=== PATIENT | female | born 1975 | race African-American/Black ===

== ENCOUNTER 2016-09-29 11:09 | Emergency (ER) | payer MEDICAID | END 2016-09-29 16:20 | disposition home or self-care (01) | LOC: D.ER 11:09 | DX: S16.1XXA Strain of muscle, fascia and tendon at neck level, initial encounter (principal); X58.XXXA Exposure to other specified factors, initial encounter; Y93.89 Activity, other specified; Y92.89 Other specified places as the place of occurrence of the external cause; F32.9 Major depressive disorder, single episode, unspecified; I10 Essential (primary) hypertension ==

== ENCOUNTER → 2017-05-25 17:20 | Outpatient (CLI) | payer MEDICAID | END | disposition home or self-care (01) | LOC: D.LAB 17:20 | DX: T85.9XXA Unspecified complication of internal prosthetic device, implant and graft, initial encounter (principal) ==

== ENCOUNTER 2017-06-03 05:29 | Day surgery (SDC) | payer OTHER ==
[2017-06-01 12:21] LABS: BASOPHILS 0.7 % (0-2); EOSINOPHILS 4.6 % (0-7); HEMATOCRIT 28.2 % (36.0-48.0); LYMPHOCYTES 36.5 % (15-50); MCHC 28.4 g/dL (31.0-37.0); MCV 68.9 fL (80.0-100.0); MEAN PLATELET VOLUME 9.3 fL (7.4-10.4); MONOCYTES 9.6 % (2-11); NEUTROPHILS 48.6 % (40-80); PLATELET COUNT 140 10x3/uL (130-400); RBC 4.09 10x6/uL (4.00-5.40); RDW 18.6 % (11.5-14.5); WBC 5.6 10x3/uL (4.8-10.8)
[2017-06-01 12:29] LABS: MCH 19.6 pg (26.0-34.0)
[2017-06-01 12:36] LABS: CALC OSMOLALITY 279 mosm/kg (275-300); CALCIUM 9.1 mg/dL (8.5-10.1); CARBON DIOXIDE 21.7 mmol/L (21.0-32.0); CHLORIDE - SERUM 111 mmol/L (98-107); CREATININE - SERUM 0.5 mg/dL (0.6-1.3); GLUCOSE 104 mg/dL (74-106); POTASSIUM - SERUM 4.8 mmol/L (3.5-5.1); SODIUM 141 mmol/L (136-145); UREA NITROGEN 11 mg/dL (7-18); eGFR NON AFRICAN AMERICAN > 90 mL/min (90-120)
[2017-06-01 12:40] LABS: HCG SERUM NEGATIVE (NEGATIVE)
[~2017-06-03] VITALS: Ht 160 cm; Wt 104.3 kg
--- NOTE | ~2017-06-03 | OP ---
PATIENT NAME: JESSEE ISSA MEDICAL RECORD: [id number] :79 LOCATION:[facility] ADMISSION DATE: SURGEON: PRAVEEN LIAO MD DATE OF OPERATION: 06/03/2017 PREOPERATIVE DIAGNOSES: 1. Menorrhagia. 2. Fibroids. 3. History of IUD placement. POSTOPERATIVE DIAGNOSES: 1. Uterine fibroids. 2. Proliferative endometrium. 3. No evidence of IUD noted. PROCEDURES: Hysteroscopy, D&C and endometrial biopsy. SURGEON: Praveen Liao MD. ESTIMATED BLOOD LOSS: Minimal. INTRAVENOUS FLUIDS: Per anesthesia record. HYSTEROSCOPIC FLUID LOSS: 300 in with less than 100 loss of 0.9 normal saline. COMPLICATIONS: None apparent. SPECIMENS: Endometrial curettings, endometrial biopsies and endometrial biopsy Pipelle. DESCRIPTION OF PROCEDURE: The patient was taken to the operating room where general anesthesia was achieved without difficulty. The patient prepped and draped in normal sterile fashion in the dorsal lithotomy position in the [facility]. The bladder was drained with a straight catheterization with approximately 200 cc of clear yellow urine. At this point, a Graves speculum was placed into the vagina and the cervix was identified and grasped on its anterior lip with a single-toothed tenaculum. Uterus was sounded to approximately 10 cm and found to be very severely anteverted. Dilation was performed, direct visualization of the turn in the internal cervical os measurement was noted to prevent perforation. Due to the severe anteverted nature and the long cervix, the normal curettes could not reach an adequate height to fully sample the uterine fundus, so an endometrial biopsy Pipelle was used to perform 4 successive biopsies to the level of the fundus. Minimal bleeding was noted from the cervical os. Afterwards, the tenaculum was removed. The patient tolerated the procedure well, transferred to postanesthesia recovery stable without incident. TRANSINT:[id number] Voice Confirmation ID: [id number] DOCUMENT ID: [id number] OPERATIVE REPORT [id number] JESSEE ISSA PRAVEEN LIAO MD CC: [id number] DICTATION DATE: 06/03/17 1107 [employer] SERVICE TECHNICIAN: 06/03/17 1655 [facility] [address] [place] [address]
[2017-06-03 07:27] VITALS: BP 150/87; Ht 160 cm; Wt 104.3 kg
[2017-06-03 07:36] LABS: HCG URINE NEGATIVE (NEGATIVE)
--- NOTE | 2017-06-03 10:37 | NUR ---
20G SITED IN LEFT HAND ON 2ND ATTEMPT BY FRANCES JOHNSON CRNA GOOD BLOOD RETURN OBTAINED FLUSHED AND PATENT. 1ST UNIT OF BLOOD STARTED.
--- NOTE | 2017-06-03 12:18 | NUR ---
PATIENT CAME TO PACU WITH BLOOD INFUSING. 2U OF PRBC WERE ORDERED. THE SECOND UNIT WILL INFUSE IN 0/P. FIRST UNIT COMPLETED AT 1150.
--- NOTE | 2017-06-03 13:00 | NUR ---
PRBC TRANSFUSING SEE TRANSFUSION RECORD FOR VS.
--- NOTE | 2017-06-03 13:45 | NUR ---
CONTINUE TO C/O SORE, SCRATCHY THROAT. SPOKE WITH DR QUINTEROS. NEW ORDERS NOTED. WILL CONTINUE TO MONITOR.
--- NOTE | 2017-06-03 15:40 | NUR ---
CONTINUES TO C/O SORE THROAT, C/O RIGHT EAR AND JAW/NECK PAIN. SPOKE WITH DR QUINTEROS. DR QUINTEROS TO BEDSIDE.
== END 2017-06-03 18:54 | disposition home or self-care (01) ==
LOC: D.OPS 05:29 → D.PAN 08:30 → D.OPS 09:00
PROVIDERS: Obstetrics & Gynecology
DX: N92.0 Excessive and frequent menstruation with regular cycle (principal); D25.9 Leiomyoma of uterus, unspecified; C86.6 Primary cutaneous CD30-positive T-cell proliferations; F17.200 Nicotine dependence, unspecified, uncomplicated; K21.9 Gastro-esophageal reflux disease without esophagitis; E66.01 Morbid (severe) obesity due to excess calories; Z68.41 Body mass index [BMI] 40.0-44.9, adult; Z01.812 Encounter for preprocedural laboratory examination

== ENCOUNTER 2018-04-28 11:02 | Outpatient (CLI) | payer MEDICAID ==
[~2018-04-28] VITALS: Ht 160 cm; Wt 103.6 kg
[2018-04-28 11:27] VITALS: Ht 160 cm; Wt 103.6 kg
[2018-04-28 13:03] LABS: ALBUMIN 3.6 g/dL (3.4-5.0); ALKALINE PHOSPHATASE 70 U/L (46-116); ALT (SGPT) 51 U/L (10-68); BILIRUBIN - TOTAL 0.32 mg/dL (0.2-1.3); CALC OSMOLALITY 276 mosm/kg (275-300); CALCIUM 8.8 mg/dL (8.5-10.1); CARBON DIOXIDE 26.4 mmol/L (21.0-32.0); CHLORIDE - SERUM 105 mmol/L (98-107); CREATININE - SERUM 0.6 mg/dL (0.6-1.3); GLUCOSE 95 mg/dL (74-106); POTASSIUM - SERUM 4.1 mmol/L (3.5-5.1); PROTEIN - SERUM 7.5 g/dL (6.4-8.2); SODIUM 140 mmol/L (136-145); UREA NITROGEN 8 mg/dL (7-18); eGFR NON AFRICAN AMERICAN > 90 mL/min (90-120)
[2018-04-28 13:14] LABS: BASOPHILS 0.7 % (0-2); HEMATOCRIT 23.9 % (36.0-48.0); IMMATURE GRANULOCYTES 0.2 % (0-5); LYMPHOCYTES 29.6 % (15-50); MCHC 26.8 g/dL (31.0-37.0); MCV 69.9 fL (80.0-100.0); MEAN PLATELET VOLUME 9.4 fL (7.4-10.4); MONOCYTES 11.7 % (2-11); NEUTROPHILS 54.8 % (40-80); RBC 3.42 10x6/uL (4.00-5.40); RDW 25.7 % (11.5-14.5); WBC 4.6 10x3/uL (4.8-10.8)
[2018-04-28 13:17] LABS: HEMOGLOBIN 6.4 g/dL (12-16); MCH 18.7 pg (26.0-34.0); PLATELET COUNT 401 10x3/uL (130-400)
[2018-04-28 18:13] VITALS: BP 137/80
== END 2018-04-28 23:00 | disposition home or self-care (01) ==
LOC: D.ER 11:02 → D.LDO 11:02 → D.ER 17:11 → D.EDHOLD 17:11 → D.LD 17:14 → D.ER 18:16 → D.LD 18:31 → D.LDO 23:00 → D.LD 23:00
PROVIDERS: Family Medicine
DX: N92.0 Excessive and frequent menstruation with regular cycle (principal); D64.9 Anemia, unspecified; F17.200 Nicotine dependence, unspecified, uncomplicated; Z01.812 Encounter for preprocedural laboratory examination

== ENCOUNTER 2018-05-02 16:22 | Inpatient (IN) | payer MEDICAID ==
[2018-05-02] VITALS (10 sets, daily range): BP systolic 134–207; BP diastolic 77–99; BMI 40.6
[~2018-05-02] VITALS: Ht 160 cm; Wt 104.1 kg
[2018-05-02 17:24] LABS: BASOPHILS 0.2 % (0-2); HEMOGLOBIN 8.1 g/dL (12-16); IMMATURE GRANULOCYTES 0.2 % (0-5); LYMPHOCYTES 29.2 % (15-50); MCH 21.2 pg (26.0-34.0); MCHC 28.9 g/dL (31.0-37.0); MCV 73.3 fL (80.0-100.0); MEAN PLATELET VOLUME 9.5 fL (7.4-10.4); MONOCYTES 8.4 % (2-11); RBC 3.82 10x6/uL (4.00-5.40); RDW 25.2 % (11.5-14.5); WBC 4.4 10x3/uL (4.8-10.8)
[2018-05-02 17:31] LABS: PLATELET COUNT 162 10x3/uL (130-400)
[2018-05-02 17:33] LABS: APTT 24.6 SECONDS (22.8-39.4); INR 0.97 (0.85-1.17); PROTIME 12.5 SECONDS (11.6-15.0)
[2018-05-02 17:34] LABS: D-DIMER-QUANTITATIVE 0.7 ug/mLFEU (0.20-0.54)
[2018-05-02] MEDS ORDERED: ACETAMINOPHEN500 M1 PO (17:58)
[2018-05-02] MEDS ORDERED: OMEPRAZOLE20 M1 PO (18:03)
[2018-05-03] VITALS (15 sets, daily range): BP systolic 121–155; BP diastolic 58–95; Ht 160 cm; Wt 104.1 kg
[2018-05-03 09:03] LABS: BASOPHILS 0.5 % (0-2); EOSINOPHILS 2.9 % (0-7); HEMATOCRIT 33.8 % (36.0-48.0); HEMOGLOBIN 10.3 g/dL (12-16); IMMATURE GRANULOCYTES 0.3 % (0-5); LYMPHOCYTES 32.1 % (15-50); MCHC 30.5 g/dL (31.0-37.0); MCV 75.4 fL (80.0-100.0); MEAN PLATELET VOLUME 9.4 fL (7.4-10.4); MONOCYTES 8.9 % (2-11); NEUTROPHILS 55.3 % (40-80); PLATELET COUNT 109 10x3/uL (130-400); RBC 4.48 10x6/uL (4.00-5.40); RDW 23.3 % (11.5-14.5); WBC 3.8 10x3/uL (4.8-10.8)
[2018-05-03 09:29] LABS: APTT 25.6 SECONDS (22.8-39.4); INR 0.99 (0.85-1.17); PROTIME 12.7 SECONDS (11.6-15.0)
[2018-05-03 09:31] LABS: D-DIMER-QUANTITATIVE 0.66 ug/mLFEU (0.20-0.54)
[2018-05-04 04:45] VITALS: BP 150/87
[2018-05-04 06:11] LABS: BASOPHILS 0.4 % (0-2); EOSINOPHILS 2.9 % (0-7); HEMATOCRIT 32.9 % (36.0-48.0); HEMOGLOBIN 10.1 g/dL (12-16); IMMATURE GRANULOCYTES 0.2 % (0-5); LYMPHOCYTES 33.5 % (15-50); MCH 23.2 pg (26.0-34.0); MCHC 30.7 g/dL (31.0-37.0); MCV 75.6 fL (80.0-100.0); MONOCYTES 10.5 % (2-11); NEUTROPHILS 52.5 % (40-80); PLATELET COUNT 101 10x3/uL (130-400); RBC 4.35 10x6/uL (4.00-5.40); RDW 23.4 % (11.5-14.5)
[2018-05-04 06:31] LABS: WBC 4.9 10x3/uL (4.8-10.8)
[2018-05-04 06:45] VITALS: BP 153/88
[2018-05-04 06:45] LABS: ALBUMIN 3.1 g/dL (3.4-5.0); ALKALINE PHOSPHATASE 54 U/L (46-116); ALT (SGPT) 58 U/L (10-68); CALC OSMOLALITY 278 mosm/kg (275-300); CALCIUM 8.7 mg/dL (8.5-10.1); CARBON DIOXIDE 24.5 mmol/L (21.0-32.0); CHLORIDE - SERUM 108 mmol/L (98-107); CREATININE - SERUM 0.5 mg/dL (0.6-1.3); GLUCOSE 87 mg/dL (74-106); POTASSIUM - SERUM 3.6 mmol/L (3.5-5.1); PROTEIN - SERUM 6.7 g/dL (6.4-8.2); SODIUM 142 mmol/L (136-145); UREA NITROGEN 5 mg/dL (7-18); eGFR NON AFRICAN AMERICAN > 90 mL/min (90-120)
[2018-05-04 12:00] VITALS: BP 125/80
== END 2018-05-04 19:30 | disposition home or self-care (01) | DRG 812 ==
LOC: D.LDO 16:22 → D.LD 19:48 → D.WS 19:48
PROVIDERS: Family Medicine; Obstetrics & Gynecology
DX: D64.9 Anemia, unspecified (principal); D25.9 Leiomyoma of uterus, unspecified; N92.0 Excessive and frequent menstruation with regular cycle; I10 Essential (primary) hypertension; F17.200 Nicotine dependence, unspecified, uncomplicated

== ENCOUNTER 2018-05-19 05:20 | Inpatient (IN) | payer MEDICAID ==
[2018-05-18 16:14] LABS: BASOPHILS 0.6 % (0-2); EOSINOPHILS 4.2 % (0-7); HEMATOCRIT 33.5 % (36.0-48.0); HEMOGLOBIN 10.4 g/dL (12-16); IMMATURE GRANULOCYTES 0.1 % (0-5); LYMPHOCYTES 18.3 % (15-50); MCH 24.2 pg (26.0-34.0); MCV 77.9 fL (80.0-100.0); MEAN PLATELET VOLUME 9.6 fL (7.4-10.4); MONOCYTES 6.9 % (2-11); NEUTROPHILS 69.9 % (40-80); PLATELET COUNT 349 10x3/uL (130-400); RDW 24.1 % (11.5-14.5); WBC 8.3 10x3/uL (4.8-10.8)
[2018-05-18 16:34] LABS: CALC OSMOLALITY 280 mosm/kg (275-300); CALCIUM 8.8 mg/dL (8.5-10.1); CARBON DIOXIDE 24.8 mmol/L (21.0-32.0); CHLORIDE - SERUM 107 mmol/L (98-107); CREATININE - SERUM 0.7 mg/dL (0.6-1.3); GLUCOSE 81 mg/dL (74-106); POTASSIUM - SERUM 3.8 mmol/L (3.5-5.1); SODIUM 141 mmol/L (136-145); UREA NITROGEN 14 mg/dL (7-18); eGFR NON AFRICAN AMERICAN > 90 mL/min (90-120)
[~2018-05-19] VITALS: Ht 160 cm; Wt 104.1 kg
[2018-05-19] VITALS (10 sets, daily range): BP systolic 114–179; BP diastolic 66–111; Ht 160 cm; Wt 104.1 kg
--- NOTE | ~2018-05-19 | OP ---
PATIENT NAME: JESSEE ISSA MEDICAL RECORD: [id number] :79 LOCATION:[facility] ADMISSION DATE:05/19/18 SURGEON: WYATT LIAO MD DATE OF OPERATION: 05/19/2018 PREOPERATIVE DIAGNOSES: 1. Severe anemia. 2. Uterine leiomyoma. POSTOPERATIVE DIAGNOSES: 1. Severe anemia. 2. Uterine leiomyoma. 3. Extensive adhesive disease. PROCEDURE: Supracervical hysterectomy and lysis of adhesions. SURGEON: Dr. Wyatt Liao ESTIMATED BLOOD LOSS: 500 cc. IV FLUIDS: Per anesthesia record. FINDINGS: 1. Enlarged myomatous uterus and extensive adhesive disease involving the cervix and bladder. 2. Normal ovaries bilaterally. SPECIMENS: Included the uterus. COMPLICATIONS: None apparent. DESCRIPTION OF THE PROCEDURE: The patient was taken to the operating room where general anesthesia was achieved without difficulty. Three units of packed red blood cells had been placed on hold. The patient was then prepped and draped in normal sterile fashion in the dorsal supine position. SCDs were on and functioning appropriately. A Murrell catheter in place and was draining freely. At this point, a repeat vertical skin incision was made and extended downward to the underlying subcutaneous fat to the level of the fascia. The fascia was then excised vertically at the superior aspect of the incision and the peritoneum was identified upon entry of the fascia. Car clamps were then used to elevate the fascia away from the underlying structures. Careful dissection of the fascia downward using the Marie scissors was performed to the level of approximately 2 cm above the pubic symphysis. The peritoneum was then entered sharply at the superior aspect of the incision using the Metzenbaum scissors. Omentum was noted to be densely adherent to the fascia. The omentum was carefully clamped, cut, and then free tied with 2-0 Vicryl until intra-abdominal/pelvic visualization could be performed. The uterus was then identified and dense adhesive disease was noted between the bladder, bilateral adnexa, and the cervix. Attention was then turned to the round ligaments, which were then grasped with Car clamps times 2. The round ligament was then cut using the Metzenbaum scissors bilaterally and the distal portion was then suture ligated with 0 Vicryl. A rudimentary bladder flap was created bilaterally on the sides using OPERATIVE REPORT [id number] JESSEE ISSA the Metzenbaum scissors, dissection was found to be extremely difficult on the lower uterine segment due to history of previous section. The bladder flap was developed to only level of a few millimeters until the bladder was found to be densely adherent to the cervix. Attention was then turned to the posterior leaf of the broad ligament, which a defect was made. Curved Dany clamps were then placed across the utero-ovarian ligaments and proximal fallopian tubes. These were then cut and ligated with 0-Vicryl free ties and then suture ligated with good hemostasis noted. The uterine vessels were then carefully skeletonized using the Metzenbaum scissors at the internal os of the cervix, which was where the bladder was found to be densely adherent. The uterine arteries were ligated using curved Dany clamps bilaterally. These were then cut and suture ligated. Attention was then turned to the bladder flap and careful dissection of the bladder downward from the lower uterine segment was performed; however, it was felt that continued dissection of the densely adherent bladder in an attempt to remove the cervix would result in a very high chance of a cystotomy or possible damage to the ureter, it was decided at this point to proceed with supracervical hysterectomy and the uterus was amputated at the level of the internal cervical os. The cervical os was then fulgurated using the Bovie cautery. Cervical stump was then oversewn using 0 Vicryl in an interrupted [id number] fashion. Good hemostasis was noted from the surgical sites at this time. The pelvis was then thoroughly irrigated. Counts correct times 2 for needles, sponges, and instruments. The vertical fascial incision was then repaired with 0 loop PDS in a running unlocked fashion times 1. The subcutaneous fat was then approximated using 0 plain gut and the skin was repaired with ayaka. The patient tolerated procedure well, transferred to the postanesthesia recovery stable without incident. TRANSINT:[id number] Voice Confirmation ID: [id number] DOCUMENT ID: [id number] WYATT LIAO MD CC: [id number] DICTATION DATE: 06/11/18530 TRANSMISSION SPECIALIST: 06/11/18704 DIS IN 05/21/18 [facility] [address] [place] [id number]
--- NOTE | ~2018-05-19 | DS ---
PATIENT:JESSEE ISSA :79 MEDICAL RECORD: [id number] DISCHARGE SUMMARY ADMISSION DATE: 05/19/18 DISCHARGE DATE: 05/21/18 HISTORY: The patient was admitted on 05/19/2018. A 42-year-old with a longstanding history of fibroids and menorrhagia. The patient had a recent history of hemoglobin of 5 necessitating admission and transfusion of 5 units of packed red cells. The patient was admitted on 05/19/2018 for hysterectomy. Risks and benefits had been explained. PAST MEDICAL HISTORY: Significant for, 1. Fibroids. 2. Menorrhagia. 3. Anemia. 4. Tobacco smoker. 5. History of chronic hypertension. PAST SURGICAL HISTORY: Significant for multiple C-sections and carpal tunnel release. ALLERGIES: The patient reported no known allergies. MEDICATIONS: Acetaminophen, omeprazole. FAMILY HISTORY: The patient reported no significant family history. SOCIAL HISTORY: Positive for being a current every day smoker. PHYSICAL EXAMINATION: VITAL SIGNS: On initial assessment, vital signs were found to be stable, mild elevation of blood pressure 149/87. The patient was normotensive. LUNGS: Clear to auscultation. CARDIOVASCULAR: Regular rate and rhythm. PELVIC: Uterus was enlarged and felt adherent to the anterior abdominal wall on exam. EXTREMITIES: Lower extremities are free of Homans sign. ASSESSMENT AND PLAN: At that time, fibroid uterus with anemia and menorrhagia, history of chronic hypertension, and history of section times 4. The patient is a tobacco smoker. Plan at that time was for hysterectomy. Risks and benefits were explained to the patient. The patient voiced understanding and consent. HOSPITAL COURSE: The patient is status post 5 units of packed red blood cells transfused, 3 units of packed red blood cells were placed on hold. A supracervical hysterectomy was performed. Operative report is as dictated. The patient did well overnight on postop day #0, on Dilaudid [employer], IV Toradol, tolerating clear liquid diet. Murrell catheter was in overnight and draining freely with adequate urine output. Homans sign was negative. The patient had SCDs on overnight. On the morning of postop day #1, the patient continued to do well. Vital signs DISCHARGE SUMMARY REPORT [id number] JESSEE ISSA are stable. The patient was afebrile, blood pressure medicines were started overnight. The incision was clean, dry and intact. Hemoglobin was stable and appropriate for amount of blood loss. Murrell was discontinued and the patient was advanced to general diet and p.o. pain meds. Creatinine was found to be within normal limits. The patient continued to improve and did well on the night of postoperative day #1, tolerating a general diet and p.o. pain meds. The patient was ambulating and voiding freely. On the morning of postop day #2, the patient continued to improve. Vital signs remained stable. The patient was afebrile. Incision clean, dry and intact. The pain well controlled on p.o. pain meds. The patient voided freely and ambulating well. The patient was discharged home on postop day #2 with instructions to follow up for staple removal. TRANSINT:[id number] Voice Confirmation ID: [id number] DOCUMENT ID: [id number] PRAVEEN MURILLO MD CC: [id number] DICTATION DATE: 06/11/18 0536 WOOD ROOM HAND: 06/11/18 0730 DIS IN 05/21/18 [place] [id number] [place] [id number]
[~2018-05-19 05:20] MED LIST: ACETAMINOPHEN500 M1 PO; OMEPRAZOLE20 M1 PO
[2018-05-19] MEDS ORDERED: ZESTRIL20 MG PO (06:18)
[2018-05-19] MEDS ORDERED: NIFEDIPINE ER30 MG PO (06:19)
[2018-05-19 06:24] LABS: HCG URINE NEGATIVE (NEGATIVE)
[2018-05-19 16:00] LABS: BASOPHILS 0.1 % (0-2); EOSINOPHILS 0 % (0-7); HEMATOCRIT 34.8 % (36.0-48.0); IMMATURE GRANULOCYTES 0.2 % (0-5); MCH 24.7 pg (26.0-34.0); MCHC 31.6 g/dL (31.0-37.0); MEAN PLATELET VOLUME 9.8 fL (7.4-10.4); NEUTROPHILS 92.7 % (40-80); PLATELET COUNT 349 10x3/uL (130-400); RBC 4.46 10x6/uL (4.00-5.40); RDW 22.7 % (11.5-14.5)
[2018-05-19 16:02] LABS: WBC 15.7 10x3/uL (4.8-10.8)
[2018-05-19 16:07] LABS: CALCIUM 8.1 mg/dL (8.5-10.1); CHLORIDE - SERUM 105 mmol/L (98-107); GLUCOSE 104 mg/dL (74-106); SODIUM 137 mmol/L (136-145)
[2018-05-19 16:08] LABS: CALC OSMOLALITY 271 mosm/kg (275-300); CREATININE - SERUM 0.5 mg/dL (0.6-1.3); UREA NITROGEN 7 mg/dL (7-18); eGFR NON AFRICAN AMERICAN > 90 mL/min (90-120)
[2018-05-20 03:52] VITALS: BP 130/73
[2018-05-20 06:13] LABS: CALCIUM 8.1 mg/dL (8.5-10.1); CARBON DIOXIDE 23.9 mmol/L (21.0-32.0); CHLORIDE - SERUM 105 mmol/L (98-107); CREATININE - SERUM 0.6 mg/dL (0.6-1.3); GLUCOSE 88 mg/dL (74-106); SODIUM 138 mmol/L (136-145); eGFR NON AFRICAN AMERICAN > 90 mL/min (90-120)
[2018-05-20 06:18] LABS: CALC OSMOLALITY 271 mosm/kg (275-300); POTASSIUM - SERUM 3.3 mmol/L (3.5-5.1); UREA NITROGEN 3 mg/dL (7-18)
[2018-05-20 06:32] LABS: BASOPHILS 0.2 % (0-2); EOSINOPHILS 0.5 % (0-7); HEMATOCRIT 31.3 % (36.0-48.0); HEMOGLOBIN 9.6 g/dL (12-16); IMMATURE GRANULOCYTES 0.2 % (0-5); LYMPHOCYTES 13.4 % (15-50); MCHC 30.7 g/dL (31.0-37.0); MCV 78.3 fL (80.0-100.0); MEAN PLATELET VOLUME 10.4 fL (7.4-10.4); MONOCYTES 7.9 % (2-11); NEUTROPHILS 77.8 % (40-80); PLATELET COUNT 369 10x3/uL (130-400); RDW 22.6 % (11.5-14.5)
[2018-05-20 06:38] LABS: WBC 11.1 10x3/uL (4.8-10.8)
[2018-05-20 08:44] VITALS: BP 141/62
[2018-05-20 19:30] VITALS: BP 150/73
[2018-05-20 23:07] VITALS: BP 147/73
[2018-05-21 03:44] VITALS: BP 147/67
[2018-05-21 08:27] VITALS: BP 129/63
[2018-05-21] MEDS ORDERED: HYDROCODONE-APA1 TAB PO (11:01)
[2018-05-21] MEDS ORDERED: IBUPROFEN600 MG PO (11:02)
== END 2018-05-21 13:15 | disposition home or self-care (01) | DRG 743 ==
LOC: D.WS 05:20 → D.SDCHOLD 05:20 → D.WS 10:48 → D.LD 05-20 18:26
PROVIDERS: Obstetrics & Gynecology
PROC: 0UT94ZL Resection of Uterus, Supracervical, Percutaneous Endoscopic Approach (ICD-10-PCS; principal; 2018-05-19 07:30)
PROC: 0TNB4ZZ Release Bladder, Percutaneous Endoscopic Approach (ICD-10-PCS; 2018-05-19 07:30)
DX: D25.9 Leiomyoma of uterus, unspecified (principal); D64.9 Anemia, unspecified; N92.0 Excessive and frequent menstruation with regular cycle; I10 Essential (primary) hypertension; Z72.0 Tobacco use

== ENCOUNTER 2018-08-10 15:53 | Emergency (ER) | payer MEDICAID ==
[~2018-08-10] VITALS: Ht 160 cm; Wt 103.2 kg
[~2018-08-10 15:53] MED LIST changes: +HYDROCODONE-APA1 TAB PO; +IBUPROFEN600 MG PO; +NIFEDIPINE ER30 MG PO; +ZESTRIL20 MG PO
[2018-08-10 16:04] VITALS: Ht 160 cm; Wt 103.2 kg
[2018-08-10] MEDS ORDERED: PROCARDIA10 MG PO ×2 (16:05→16:06)
[2018-08-10] MEDS ORDERED: PRINIVIL20 MG PO (16:05)
[2018-08-10] MEDS ORDERED: FOLATE0.4 MG PO (16:06)
== END 2018-08-10 18:30 | disposition left against medical advice (07) ==
LOC: D.ER 15:53
DX: I10 Essential (primary) hypertension (principal)

== ENCOUNTER 2018-08-25 14:51 | Emergency (ER) | payer MEDICAID ==
[~2018-08-25] VITALS: Ht 160 cm; Wt 101.8 kg
[~2018-08-25 14:51] MED LIST changes: +FOLATE0.4 MG PO; +PRINIVIL20 MG PO; +PROCARDIA10 MG PO
[2018-08-25 15:08] VITALS: Ht 160 cm; Wt 101.8 kg
[2018-08-25 16:59] VITALS: BP 161/89
== END 2018-08-25 16:58 | disposition home or self-care (01) ==
LOC: D.ER 14:51
DX: I10 Essential (primary) hypertension (principal); F17.200 Nicotine dependence, unspecified, uncomplicated

== ENCOUNTER 2018-10-03 18:18 | Emergency (ER) | payer MEDICAID ==
[~2018-10-03] VITALS: Ht 160 cm; Wt 99.5 kg
[2018-10-03 18:32] VITALS: Ht 160 cm; Wt 99.5 kg
[2018-10-03 19:45] VITALS: BP 131/66
== END 2018-10-03 20:07 | disposition left against medical advice (07) ==
LOC: D.ER 18:18
DX: I95.9 Hypotension, unspecified (principal)

== ENCOUNTER → 2018-11-24 12:39 | Outpatient (CLI) | payer MEDICAID ==
[2018-10-03 18:32] VITALS: BMI 38.8
== END | disposition home or self-care (01) ==
LOC: D.RAD 12:39 → D.LABREF 12:39
PROVIDERS: ATTEND Emergency Medicine
DX: M54.42 Lumbago with sciatica, left side (principal)

== ENCOUNTER → 2019-06-13 17:04 | Outpatient (CLI) | payer MEDICAID ==
[2018-10-03 18:32] VITALS: BMI 38.8
== END | disposition home or self-care (01) ==
LOC: D.RAD 17:04
PROVIDERS: ATTEND Emergency Medicine
DX: M54.2 Cervicalgia (principal)

== ENCOUNTER 2019-09-24 09:03 | Emergency (ER) | payer MEDICAID ==
[~2019-09-24] VITALS: Ht 160 cm; Wt 102.3 kg
[2019-09-24 09:06] VITALS: Ht 160 cm; Wt 102.3 kg
[2019-09-24 10:03] LABS: BASOPHILS 0.2 % (0-2); EOSINOPHILS 4.4 % (0-7); HEMATOCRIT 38.5 % (36.0-48.0); HEMOGLOBIN 12.8 g/dL (12-16); IMMATURE GRANULOCYTES 0.2 % (0-5); LYMPHOCYTES 31.4 % (15-50); MCH 28.4 pg (26.0-34.0); MCHC 33.2 g/dL (31.0-37.0); MCV 85.4 fL (80.0-100.0); MEAN PLATELET VOLUME 10.5 fL (7.4-10.4); MONOCYTES 8.9 % (2-11); NEUTROPHILS 54.9 % (40-80); PLATELET COUNT 165 10x3/uL (130-400); RBC 4.51 10x6/uL (4.00-5.40); RDW 15.7 % (11.5-14.5); WBC 4.8 10x3/uL (4.8-10.8)
[2019-09-24 10:05] LABS: APTT 27.6 SECONDS (22.8-39.4); CALC OSMOLALITY 278 mosm/kg (275-300); CALCIUM 8.8 mg/dL (8.5-10.1); CHLORIDE - SERUM 107 mmol/L (98-107); CREATININE - SERUM 0.6 mg/dL (0.6-1.3); GLUCOSE 108 mg/dL (74-106); INR 1.06 (0.85-1.17); POTASSIUM - SERUM 4.3 mmol/L (3.5-5.1); PROTIME 13.3 SECONDS (11.6-15.0); SODIUM 140 mmol/L (136-145); UREA NITROGEN 9 mg/dL (7-18); eGFR NON AFRICAN AMERICAN > 90 mL/min (90-120)
[2019-09-24 10:29] LABS: ALBUMIN 3.5 g/dL (3.4-5.0); ALKALINE PHOSPHATASE 64 U/L (46-116); ALT (SGPT) 127 U/L (10-68); BILIRUBIN - TOTAL 0.44 mg/dL (0.2-1.3); CKMB 0.8 U/L (0.0-3.6); CREATINE KINASE 133 UL (21-215); MAGNESIUM - SERUM 1.8 mg/dL (1.8-2.4); PROTEIN - SERUM 7.1 g/dL (6.4-8.2); TROPONIN-I < 0.017 ng/mL (0.000-0.060)
[2019-09-24] MEDS ORDERED: AUGMENTIN 875-11 TAB PO (11:46)
[2019-09-24] MEDS ORDERED: LISINOPRIL20 MG PO (11:46)
[2019-09-24] MEDS ORDERED: FLUTICASONE PRO16 GM NASAL (11:46)
[2019-09-24] MEDS ORDERED: PROCARDIA XL30 MG PO (11:53)
[2019-09-24 11:59] VITALS: BP 168/100
== END 2019-09-24 12:00 | disposition home or self-care (01) ==
LOC: D.ER 09:03
PROVIDERS: Family Medicine
DX: J01.90 Acute sinusitis, unspecified (principal); I10 Essential (primary) hypertension; R51 Headache; Z72.0 Tobacco use

== ENCOUNTER → 2020-03-25 16:50 | Outpatient (CLI) | payer MEDICAID ==
[2019-10-22 10:12] VITALS: BMI 39.9
[~2020-03-25 16:50] MED LIST changes: +AUGMENTIN 875-11 TAB PO; +FLUTICASONE PRO16 GM NASAL; +LISINOPRIL20 MG PO; +OMNICEF300 MG PO; +PROCARDIA XL30 MG PO
== END | disposition home or self-care (01) ==
LOC: D.RAD 16:50
PROVIDERS: ATTEND Emergency Medicine
DX: M54.2 Cervicalgia (principal); M54.10 Radiculopathy, site unspecified

== ENCOUNTER → 2021-02-18 07:04 | Outpatient (CLI) | payer BC ==
[2019-10-22 10:12] VITALS: BMI 39.9
[2021-02-18 07:48] LABS: ALBUMIN 3.6 g/dL (3.4-5.0); BILIRUBIN - DIRECT 0.12 mg/dL (0.00-0.30); BILIRUBIN - INDIRECT 0.28 mg/dL (0.00-1.00); BILIRUBIN - TOTAL 0.4 mg/dL (0.2-1.3); PROTEIN - SERUM 7.4 g/dL (6.4-8.2)
[2021-02-18 08:25] LABS: ALBUMIN 3.6 g/dL (3.4-5.0); BILIRUBIN - DIRECT 0.12 mg/dL (0.00-0.30); BILIRUBIN - INDIRECT 0.28 mg/dL (0.00-1.00); BILIRUBIN - TOTAL 0.4 mg/dL (0.2-1.3); PROTEIN - SERUM 7.4 g/dL (6.4-8.2)
== END | disposition home or self-care (01) ==
LOC: D.US 07:04
PROVIDERS: ATTEND Internal Medicine Gastroenterology
DX: K76.0 Fatty (change of) liver, not elsewhere classified (principal)